=== PATIENT | female | born 1995 | race African-American/Black ===

== ENCOUNTER 2020-07-26 12:25 | Emergency (ER) | payer OTHER ==
[~2020-07-26] VITALS: Ht 167.6 cm; Wt 61.3 kg
[2020-07-26 12:28] VITALS: BP 123/86; TEMP 98.2
[2020-07-26 13:49] VITALS: PULSE 88
== END 2020-07-26 13:49 | disposition home or self-care (01) ==
LOC: COL.ER 12:25 → EDBD 12:27 → COL.ER 13:49
DX: N60.01 Solitary cyst of right breast (principal); N63.13 Unspecified lump in the right breast, lower outer quadrant

== ENCOUNTER → 2020-07-31 | Outpatient (CLI) | payer OTHER | LOC: MC.RAD 08:30 | DX: N60.01 Solitary cyst of right breast (principal) ==

== ENCOUNTER → 2020-08-05 | Outpatient (CLI) | payer OTHER | LOC: MC.RAD 08:53 | DX: N63.10 Unspecified lump in the right breast, unspecified quadrant (principal) | CPT/HCPCS: 30634 ==